=== PATIENT | female | born 1940 | race Caucasian/White ===

== ENCOUNTER → 2016-09-20 | Outpatient (CLI) | payer MEDICARE ==
--- NOTE | 2016-09-20 20:26 | BD ---
EXAMINATION TYPE: MG DEXA axial skeleton. DATE OF EXAM: 09/20/2016 3:30 PM COMPARISON: NONE CLINICAL HISTORY: 76-year-old female known osteoporosis Height: 59 Weight: 159.8 FRAX RISK QUESTIONS: Alcohol (3 or more units per day): no Family History (Parent hip fracture): no Glucocorticoids (More than 3mos): no (Ex: prednisone, prednisolone, methylprednisolone, dexamethasone, and hydrocortisone). History of Fracture in Adulthood: no Secondary Osteoporosis: 1. Type 1 Diabetes: no 2. Hyperthyroidism: no 3. Menopause before 45: yes 4. Malnutrition: no 5. Chronic liver disease: no Rheumatoid Arthritis: no Current Tobacco Use: no RISK FACTORS HISTORY OF: Hip Fracture (Right/Left): no Spine Fracture: no History of Wrist Fracture: no Surgery to Spine/Hip(right/left)/Wrist (right/left): no Family History of Osteoporosis: no Active: no Diet low in dairy products/other sources of calcium: yes Postmenopausal woman: hysterectomy age 29 Lost more than 2 inches in height since high school: no Frequent falls: no Poor Health: sometimes Adrenal Insufficiency: no MEDICATIONS: norco, micro k, Lasix, lopressor Additional History: EXAM MEASUREMENTS: Bone mineral densitometry was performed using the [employer] System. Bone mineral density as measured about the Lumbar spine is: ----- L1-L4(G/cm2): 1.120 T Score Values are as follows: ----- L2: -1.3 ----- L3: 0.5 ----- L4: 0.1 ----- L1-L4: -0.5 Bone mineral density has: baseline Bone mineral density about the R hip (g/cm2): 0.782 Bone mineral density about the L hip (g/cm2): 0.736 T Score values are as follows: -----R Neck: -1.8 -----L Neck: -2.2 -----R Intertrochanter: -1.2 -----L Intertrochanter: -1.4 Bone mineral density has: baseline IMPRESSION: Osteopenia (T Score between -2.5 and -1) as noted by T score values in the lumbar spine and both hips . There is slightly increased risk of fracture and the patient may be considered for treatment. Re-Screen 2-5 years. NOTE: T-SCORE=SD OF THE YOUNG ADULT MEAN.
== END | disposition home or self-care (01) ==
LOC: RADBDWWP 14:43
PROVIDERS: ATTEND Internal Medicine
DX: M85.851 Other specified disorders of bone density and structure, right thigh (principal); M85.852 Other specified disorders of bone density and structure, left thigh
CPT/HCPCS: 77080

== ENCOUNTER → 2017-08-14 | Outpatient (CLI) | payer MEDICARE ==
--- NOTE | 2017-08-14 13:19 | US ---
EXAMINATION TYPE: US abdomen complete DATE OF EXAM: 08/14/2017 COMPARISON: US 2010 CLINICAL HISTORY: R10.10 Upper Abdominal Pain. Epigastric pain radiating to RUQ and RLQ x months; GB removed EXAM MEASUREMENTS: Liver Length: 10.9 cm Gallbladder Wall: surgically removed CBD: 9.8mm Spleen: 9.2 cm Right Kidney: 9.7 x 4.7 x 4.5 cm Left Kidney: 9.0 x 4.5 x 4.1 cm Pancreas: Unremarkable Liver: hyperechoic suggests fatty liver. This limits evaluation for hepatic masses. Gallbladder: surgically removed Evidence for sonographic Haley's sign: No CBD: prominent, but size is wnl post cholecystectomy Spleen: couple of peripheral wall calcifications are noted, benign Right Kidney: No hydronephrosis or masses seen Left Kidney: upper to mid simple cortical cyst = 1.6 x 1.9 x 1.4cm Upper IVC: wnl Abd Aorta: size is wnl IMPRESSION: 1. Hyperechoic hepatic echotexture, most commonly relating to hepatic steatosis. 2. Benign appearing left renal cyst.
== END ==
LOC: RADUSWWP 09:51
PROVIDERS: ATTEND Internal Medicine Gastroenterology
DX: R10.10 Upper abdominal pain, unspecified (principal); N28.1 Cyst of kidney, acquired
CPT/HCPCS: 76700

== ENCOUNTER → 2019-03-25 | Outpatient (CLI) | payer MEDICARE ==
--- NOTE | 2019-03-25 16:58 | XR ---
EXAMINATION TYPE: XR chest 2V DATE OF EXAM: 03/25/2019 COMPARISON: NONE HISTORY: Wheezing and short of breath TECHNIQUE: Frontal and lateral views of the chest are obtained. FINDINGS: Heart is normal. There is small linear density at the right lung base anteriorly. There is no pulmonary consolidation. There is no heart failure. Costophrenic angles are clear. IMPRESSION: Mild subsegmental atelectasis in the right middle lobe. Normal heart.
== END | disposition home or self-care (01) ==
LOC: RADXRMAIN 16:27
PROVIDERS: ATTEND Internal Medicine Interventional Cardiology
DX: J98.11 Atelectasis (principal)
CPT/HCPCS: 71046

== ENCOUNTER → 2020-08-16 | Outpatient (CLI) | payer MEDICARE ==
[2020-08-16 16:10] LABS: Chol/HDL Ratio 3.6; LDL Cholesterol,Calculated 127.6 mg/dL (0.0-131.0); VLDL Calculation 28.4 mg/dL (5.00-40.00)
== END | disposition home or self-care (01) ==
LOC: LABWHC1 09:47
PROVIDERS: ATTEND Internal Medicine Interventional Cardiology
DX: E78.5 Hyperlipidemia, unspecified (principal)
CPT/HCPCS: 36415; 80061; 84450; 84460

== ENCOUNTER → 2023-08-21 | Outpatient (CLI) | payer MEDICARE ==
--- NOTE | 2023-08-25 14:41 | MM ---
Reason for Exam: Screening (asymptomatic). Last mammogram was performed 10 year(s) and 11 month(s) ago. Patient History: Menarche at age 7. First Full-Term at age 16. Left ovary removed at age 32. Right ovary removed at age 32. Hysterectomy at age 32. Postmenopausal. Patient has history of breast feeding. Risk Values: Tamra 5 year model risk: 1.0%. NCI Lifetime model risk: 1.0%. Prior Study Comparison: 11/22/2009 Bilateral Screening Mammogram, [facility]. 08/23/2011 Bilateral Screening Mammogram, [facility]. 08/28/2012 Bilateral Screening Mammogram, [facility]. Tissue Density: The breasts are almost entirely fatty. Findings: Analyzed By CAD. The pattern is symmetrical. A few scattered benign punctate calcifications are present bilaterally. No suspicious groups of microcalcifications, spiculated or lobular masses, architectural distortion or other secondary signs of malignancy are mammographically apparent. Overall Assessment: Benign, BI-RAD 2 Management: Screening Mammogram of both breasts in 1 year. A negative mammogram report should not preclude additional follow up of suspicious palpable abnormalities. Patient should continue monthly self breast exam. A clinical breast exam by your physician is recommended on an annual basis and results should be correlated with mammographic findings. Electronically signed and approved by: Bk Szymanski D.O. Radiologis
== END | disposition home or self-care (01) ==
LOC: RADMAMWWP 11:38
PROVIDERS: ATTEND Family Medicine
DX: Z12.31 Encounter for screening mammogram for malignant neoplasm of breast (principal); Z78.0 Asymptomatic menopausal state
CPT/HCPCS: 77063; 77067

== ENCOUNTER 2024-11-30 18:06 | Emergency (ER) | payer MEDICARE ==
[2024-11-30 18:21] VITALS: BP 173/78; PULSE 100; RESP 20; TEMP 97.6
[2024-11-30 18:46] LABS: Basophils # (A) 0.02 10*3/uL (0.00-0.10); Basophils % (A) 0.3 %; Eosinophils # (A) 0.02 10*3/uL (0.04-0.35); Eosinophils % (A) 0.3 %; HCT 38.1 % (37.2-46.3); HGB 13.2 g/dL (12.0-15.0); Lymphocytes # (A) 1.23 10*3/uL (0.90-5.00); Lymphocytes % (A) 20.3 %; MCH 30.8 pg (27.0-32.0); MCHC 34.6 g/dL (32.0-37.0); MCV 88.8 fL (80.0-97.0); Monocytes # (A) 0.49 10*3/uL (0.20-1.00); Monocytes % (A) 8.1 %; Neutrophils # (A) 4.28 10*3/uL (1.80-7.70); Neutrophils % (A) 70.7 %; Platelet Count 176 10*3/uL (140-440); RBC 4.29 10*6/uL (4.10-5.20); RDW 12.4 % (11.5-14.5); WBC 6.06 10*3/uL (4.50-10.00)
[2024-11-30 18:53] LABS: INR 1.1 (<1.2); Partial Thromboplastin Time 25.5 sec (22.0-30.0); Prothrombin Time 12.1 sec (10.0-12.5)
[2024-11-30 18:54] LABS: ALT 37 U/L (4-34); AST 39 U/L (14-36); African American GFR (CKD) 77 (>60 ml/min/1.73 sqM); Albumin 3.9 g/dL (3.5-5.0); Alkaline Phosphatase 85 U/L (38-126); Anion Gap 11 mmol/L; Blood Urea Nitrogen 21 mg/dL (7-17); Calcium 9.6 mg/dL (8.4-10.2); Carbon Dioxide 28 mmol/L (22-30); Chloride 99 mmol/L (98-107); Glucose 112 mg/dL (74-99); Magnesium 1.9 mg/dL (1.6-2.3); Non-African American GFR(CKD) 67 (>60 ml/min/1.73 sqM); Potassium 3.5 mmol/L (3.5-5.1); Sodium 138 mmol/L (137-145); Total Protein 6.5 g/dL (6.3-8.2)
--- NOTE | 2024-11-30 19:59 | ED ---
Altered Mental Status HPI - General Chief Complaint: Headache Stated Complaint: Possible Stroke Time Seen by Provider: 11/30/24 19:38 Source: patient, RN notes reviewed, old records reviewed Mode of arrival: wheelchair Limitations: no limitations - History of Present Illness Initial Comments: This is a 84-year-old female to ER with 1 week of fatigue decreased activity level not doing normal daily activities per , daughter at bedside concern for brain changes or changes in her mental health. Concern for CVA history of TIA. Patient also complaining of numbness and tingling of both legs. Headaches on and off for the last few days MD Complaint: altered mental status, confusion, decreased responsiveness, weakness -: days(s) Consistency of Symptoms: waxing and waning, unknown (Improving at this time) Context: history of similar presentation Treatments Prior to Arrival: IV fluid - Related Data Home Medications Medication Instructions Recorded Confirmed Cholecalciferol [Vitamin D3] 5,000 unit PO DAILY 06/26/17 06/26/17 Furosemide [Lasix] 40 mg PO DAILY 06/26/17 06/26/17 HYDROcodone/APAP 10-325MG [Elizabeth 1 tab PO QID PRN 06/26/17 06/26/17 10-325] Metoprolol Tartrate 25 mg PO QAM 06/26/17 06/26/17 Omeprazole 20 mg PO DAILY PRN 06/26/17 06/26/17 Potassium Chloride [K-Tab ER] 10 meq PO DAILY 06/26/17 06/26/17 Allergies Allergy/AdvReac Type Severity Reaction Status Date / Time Penicillins Allergy Rash/Hives Verified 06/28/17 10:39 Review of Systems ROS Statement: Those systems with pertinent positive or pertinent negative responses have been documented in the HPI. ROS Other: All systems not noted in ROS Statement are negative. Past Medical History Past Medical History: CVA/TIA, Fibromyalgia, GERD/Reflux, Hypertension Additional Past Medical History / Comment(s): edema lower legs,feet and hands, hx palpitations, occ diff swallowing, vitiligo, History of Any Multi-Drug Resistant Organisms: None Reported Past Surgical History: Appendectomy, Cholecystectomy, Hysterectomy Past Anesthesia/Blood Transfusion Reactions: Previous Problems w/ Anesthesia Additional Past Anesthesia/Blood Transfusion Reaction / Comment(s): "epidural would not take" Past Psychological History: No Psychological Hx Reported Past Alcohol Use History: Occasional Past Drug Use History: None Reported - Past Family History Father Family Medical History: Cancer Additional Family Medical History / Comment(s): colon General Exam Limitations: no limitations, altered mental status General appearance: alert, in no apparent distress Head exam: Present: atraumatic, normocephalic, normal inspection Eye exam: Present: normal appearance, PERRL, EOMI. Absent: scleral icterus, conjunctival injection, periorbital swelling ENT exam: Present: normal exam, mucous membranes moist Neck exam: Present: normal inspection. Absent: tenderness, meningismus, lymphadenopathy Respiratory exam: Present: normal lung sounds bilaterally. Absent: respiratory distress, wheezes, rales, rhonchi, stridor Cardiovascular Exam: Present: regular rate, normal rhythm, normal heart sounds. Absent: systolic murmur, diastolic murmur, rubs, gallop, clicks GI/Abdominal exam: Present: soft, normal bowel sounds. Absent: distended, tenderness, guarding, rebound, rigid Extremities exam: Present: normal inspection, full ROM, normal capillary refill. Absent: tenderness, pedal edema, joint swelling, calf tenderness Back exam: Present: normal inspection Neurological exam: Present: alert, oriented X3, CN II-XII intact Psychiatric exam: Present: normal affect, normal mood Skin exam: Present: warm, dry, intact, normal color. Absent: rash Course Vital Signs 11/30/24 18:17 Temperature 97.6 F Pulse Rate 100 Respiratory 20 Rate Blood Pressure 173/78 O2 Sat by Pulse 97 Oximetry - Reevaluation(s) Reevaluation #1: 11/30/24 20:04 Medical records reviewed Reevaluation #2: 11/30/24 20:04 Patient self remains without complaint no focal neurological deficits noted Reevaluation #3: 11/30/24 20:04 Patient family informed of results questions answered Reevaluation #4: Was pt. sent in by a medical professional or institution (, PA, VOCATIONAL EDUCATION TEACHER, urgent care, hospital, or alf...) When possible be specific @ -no Did you speak to anyone other than the patient for history (EMS, parent, family, police, friend...)? What history was obtained from this source @ -no Did you review nursing and triage notes (agree or disagree)? Why? @ -agree Are old charts reviewed (outside hosp., previous admission, EMS record, old EKG, old radiological studies, urgent care reports/EKG's, alf records)? Report findings @ -yes Differential Diagnosis (chest pain, altered mental status, abdominal pain women, abdominal pain men, vaginal bleeding, weakness, fever, dyspnea, syncope, headache, dizziness, GI bleed, back pain, seizure, CVA, palpatations, mental health, musculoskeletal)? @ -prior EKG interpreted by me (3pts min.). @ -yes X-rays interpreted by me (1pt min.). @ -yes negative for acute disease CT interpreted by me (1pt min.). @ -no U/S interpreted by me (1pt. min.). @ -no What testing was considered but not performed or refused? (CT, X-rays, U/S, labs)? Why? @ -none What meds were considered but not given or refused? Why? @ -none Did you discuss the management of the patient with other professionals (carlos xie i.e. , PA, VOCATIONAL EDUCATION TEACHER, lab, RT, psych nurse, group social worker, market master, teacher, public service officer, field case manager)? Give summary @ -no Was smoking cessation discussed for >3mins.? @ -no Was critical care preformed (if so, how long)? @ -no Were there social determinants of health that impacted care today? How? (Homelessness, low income, unemployed, alcoholism, drug addiction, transportation, low edu. Level, literacy, decrease access to med. care, alf, rehab)? @ -none Was there de-escalation of care discussed even if they declined (Discuss DNR or withdrawal of care, Hospice)? DNR status @ -no What co-morbidities impacted this encounter? (DM, HTN, Smoking, COPD, CAD, Cancer, CVA, ARF, Chemo, Hep., AIDS, mental health diagnosis, sleep apnea, morbid obesity)? @ -none Was patient admitted / discharged? Hospital course, mention meds given and route, prescriptions, significant lab abnormalities, going to OR and other pertinent info. @ - Undiagnosed new problem with uncertain prognosis? @ -no Drug Therapy requiring intensive monitoring for toxicity (Heparin, Nitro, Insulin, Cardizem)? @ -no Were any procedures done? @ -no Diagnosis/symptom? @ - Acute, or Chronic, or Acute on Chronic? @ -Acute Uncomplicated (without systemic symptoms) or Complicated (systemic symptoms)? @ -Complicated Side effects of treatment? @ -no Exacerbation, Progression, or Severe Exacerbation? @ -exacerbation Poses a threat to life or bodily function? How? (Chest pain, USA, OR, pneumonia, PE, COPD, DKA, ARF, appy, cholecystitis, CVA, Diverticulitis, Homicidal, Suicidal, threat to staff... and all critical care pts) @ -yes Reevaluation #5: Differential Altered Mental Status: Hypoglycemia, DKA, hypercapnia, ETOH, overdose, CO poisoning, trauma, myxedema coma, HTN encephalopathy, infection, encephalitis, psychosis, intercranial hemorrhage, hepatic encephalopathy, meningitis, CVA, this is not meant to be an all-inclusive list Medical Decision Making - Medical Decision Making 84 female concern for TIA, CVA, patient does have CVA findings on CT scan lab testing normal patient can be discharged home - Lab Data Result diagrams: 11/30/24 18:30 11/30/24 18:30 Lab Results 11/30/24 11/30/24 11/30/24 Range/Units 18:30 18:30 18:30 WBC 6.06 (4.50-10.00) 10*3/uL RBC 4.29 (4.10-5.20) 10*6/uL Hgb 13.2 (12.0-15.0) g/dL Hct 38.1 (37.2-46.3) % MCV 88.8 (80.0-97.0) fL MCH 30.8 (27.0-32.0) pg MCHC 34.6 (32.0-37.0) g/dL Plt Count 176 (140-440) 10*3/uL MPV 10.5 (9.5-12.2) fL Immature Gran % (Auto) 0.3 % Neutrophils % 70.7 % Lymphocytes % 20.3 % Monocytes % 8.1 % Eosinophils % 0.3 % Basophils % 0.3 % Immature Gran # 0.02 (0.00-0.04) 10*3/uL Neutrophils # 4.28 (1.80-7.70) 10*3/uL Lymphocytes # 1.23 (0.90-5.00) 10*3/uL Monocytes # 0.49 (0.20-1.00) 10*3/uL Eosinophils # 0.02 L (0.04-0.35) 10*3/uL Basophils # 0.02 (0.00-0.10) 10*3/uL PT 12.1 (10.0-12.5) sec INR 1.1 (<1.2) APTT 25.5 (22.0-30.0) sec Sodium 138 (137-145) mmol/L Potassium 3.5 (3.5-5.1) mmol/L Chloride 99 (98-107) mmol/L Carbon Dioxide 28 (22-30) mmol/L Anion Gap 11 mmol/L BUN 21 H (7-17) mg/dL Creatinine 0.80 (0.52-1.04) mg/dL Est GFR (CKD-EPI)AfAm 77 (>60 ml/min/1.73 sqM) Est GFR (CKD-EPI)NonAf 67 (>60 ml/min/1.73 sqM) Glucose 112 H (74-99) mg/dL Calcium 9.6 (8.4-10.2) mg/dL Magnesium 1.9 (1.6-2.3) mg/dL Total Bilirubin 1.2 (0.2-1.3) mg/dL AST 39 H (14-36) U/L ALT 37 H (4-34) U/L Alkaline Phosphatase 85 (38-126) U/L Total Protein 6.5 (6.3-8.2) g/dL Albumin 3.9 (3.5-5.0) g/dL - EKG Data -: EKG Interpreted by Me (EKG sinus 95 OR 124 QRS 93 QTc 388) - Radiology Data Radiology results: report reviewed (CT brain showed new acute/subacute CVA), image reviewed Disposition Clinical Impression: Headache, CVA (cerebral vascular accident) Condition: Fair Instructions (If sedation given, give patient instructions): Stroke (DC) Is patient prescribed a controlled substance at d/c from ED?: No Referrals: Gavin Goodwin MD [Primary Care Provider] - 1-2 days Time of Disposition: 22:00
--- NOTE | 2024-11-30 20:52 | CT ---
EXAMINATION TYPE: CT brain wo con DATE OF EXAM: 11/30/2024 8:30 PM COMPARISON: None. CLINICAL INDICATION: Female, 84 years old with history of Headache, HEADACHE AND NECK PAIN TECHNIQUE: Brain: Axial CT images of the brain were obtained with coronal and sagittal reformats created and rev iewed. Contrast used: None. Oral contrast used: None. CT DLP: 1066.4 mGycm, Automated exposure control for dose reduction was used. FINDINGS: Brain: Extra-axial spaces: No abnormal extra-axial fluid collections. Ventricular system: Dilatation in proportion to cerebral atrophy. Cerebral parenchyma: Hypodense areas in the thalami. Cerebral atrophy. No acute intraparenchymal hemo rrhage or mass effect. The watts-white junction is well differentiated. Scattered hypoattenuating are as are seen within the white matter. Cerebellum: Unremarkable. Mass effect: No evidence of midline shift. Intracranial vasculature: Atherosclerotic calcifications of the intracranial vessels. Soft tissues: Normal. Calvarium/osseous structures: No depressed skull fracture. Paranasal sinuses and mastoid air cells: Mild scattered paranasal sinus disease. Visualized orbits: Orbital contents are intact. IMPRESSION: 1. No acute intracranial process. 2. Hypodense areas in the thalami posteriorly mammogram perivascular spaces versus remote injuries. C onsider MRI if concern for acute ischemia. 3. Nonspecific white matter changes, likely secondary to chronic small vessel ischemic disease. [facility], , 11/30/2024 8:50 PM
[2024-11-30] MEDS ORDERED: SODIUM CHLORIDE 0.9% 500 ML 500 ML IV ONE (21:45)
[2024-11-30 22:46] LABS: Bacteria,Urine Occasional /hpf; Bilirubin,Urine Negative (Negative); Blood,Urine Negative (Negative); Color,Urine Yellow; Glucose,Urine (UA) Negative (Negative); Hyaline Casts,Urine 16 /lpf (0-2); Ketones,Urine 1+ (Negative); Leukocyte Esterase,Urine Small (Negative); Mucus,Urine Rare /hpf; Nitrite,Urine Positive (Negative); PH, Urine 5.5 (5.0-8.0); Protein,Urine Trace (Negative); RBC,Urine 1 /hpf (0-5); Specific Gravity,Urine 1.016 (1.001-1.035); Squamous Epithelial Cell,Urine 3 /hpf (0-4); Urobilinogen,Urine <2.0 mg/dL (<2.0); WBC,Urine 9 /hpf (0-5)
[2024-11-30] MEDS: cefTRIAXone IN SWFI 1,000 MG/10 ML SYRINGE IVP STA (22:57)
[2024-11-30] MEDS: CEPHALEXIN 500MG STARTER PACK 4 CAP BTL PO STA (23:00)
== END 2024-11-30 23:11 ==
LOC: EC 18:06
DX: I63.9 Cerebral infarction, unspecified (principal); R51.9 Headache, unspecified; Z88.0 Allergy status to penicillin
CPT/HCPCS: 36415; 93005; 80053; 83735; 84443; 85025; 85610; 85730; 81001; 70450; 99284; 96374; J0696